=== PATIENT | male | born 1975 | race Caucasian/White ===

== ENCOUNTER → 2022-05-15 | Emergency (ER) | payer BC ==
[~2022-05-15] MED LIST: AUGMENTIN 875-1 EACH PO; CYCLOBENZAPRINE10 MG PO; PERCOCET 5/325 T1 EA PO
[2022-05-15 01:52] LABS: HEMOGLOBIN 17.2 gm/dl (14.0-17.5); RED BLOOD COUNT 5.51 M/UL (4.20-5.50); WHITE BLOOD COUNT 16.7 K/UL (4.5-11.0)
[2022-05-15 02:12] LABS: BUN/CREATININE RATIO 8 (0-10)
== END | disposition home or self-care (01) ==
LOC: ER1 01:17
PROVIDERS: Family Medicine
DX: S06.0X9A Concussion with loss of consciousness of unspecified duration, initial encounter (principal); S81.011A Laceration without foreign body, right knee, initial encounter; I10 Essential (primary) hypertension; Z23 Encounter for immunization; V86.99XA Unspecified occupant of other special all-terrain or other off-road motor vehicle injured in nontraffic accident, initial encounter
CPT/HCPCS: 12002; 70450; 72125; 80048; 80176; 82150; 82550; 82553; 83605; 83690; 84484; 85025; 86850; 86900; 86901; 90471; 90715; 96374; 96375; 99284; J2270; J2405